=== PATIENT | male | born 1950 | race Caucasian/White ===

== ENCOUNTER 2018-01-14 01:34 | Inpatient (IN) | payer MEDICARE ==
--- NOTE | 2018-01-14 01:57 | C.PDOC ---
History Of Present Illness 67 y/o male presents to the ED complaining of worsening SOB over last 6 months. Also complains of dyspnea on exertion. Associated with paroxysmal nocturnal dyspnea, dry cough, and lower extremity edema. Patient notes symptoms have worsened over the last 2 days, and he is now unable to sleep due to dry hacking cough. Denies any nausea, vomiting, fever, or chills. On arrival patient is speaking in complete sentences. Over the last 6 weeks, patient states he is only able to sleep while sitting in his arm chair. Time Seen by Provider: 01/14/18 01:55 Chief Complaint (Nursing): Shortness Of Breath History Per: Patient History/Exam Limitations: no limitations Onset/Duration Of Symptoms: Days Current Symptoms Are (Timing): Still Present Initiating Event: Other Quality: Dull Exacerbating Factor(s): Laying Flat, Coughing Current Respiratory Medications: See Home Med List Severity: Moderate Pain Scale Rating Of: 5 Associated Symptoms: Ankle/Leg Swelling. denies: Fever, Chills, Chest Pain Recent travel outside of the [place]: No Additional History Per: Family Past Medical History Reviewed: Historical Data, Nursing Documentation, Vital Signs Vital Signs: Last Vital Signs Temp 98.9 F 01/14/18 01:55 Pulse 110 H 01/14/18 02:19 Resp 18 01/14/18 02:19 BP 150/90 01/14/18 02:19 Pulse Ox 95 01/14/18 02:59 - Medical History PMH: Diabetes, HTN Family History: States: Unknown Family Hx - Social History Hx Tobacco Use: No Hx Alcohol Use: Yes Hx Substance Use: No Review Of Systems Constitutional: Negative for: Fever, Chills Respiratory: Positive for: Cough, Shortness of Breath, SOB with Excertion, Other (PND) Gastrointestinal: Negative for: Nausea, Vomiting Musculoskeletal: Positive for: Other (lower extremity swelling) Physical Exam - Physical Exam Appears: Non-toxic, No Acute Distress Skin: Warm, Dry Head: Normacephalic Eye(s): bilateral: Normal Inspection Oral Mucosa: Moist Neck: Trachea Midline, Supple Chest: Symmetrical Cardiovascular: Rhythm Regular Respiratory: Decreased Breath Sounds, Rales (Diffuse rales at the bases), Rhonchi (right > left) Gastrointestinal/Abdominal: Soft, No Tenderness, No Distention Back: Normal Inspection, No CVA Tenderness Extremity: Normal ROM, Pedal Edema Extremity: Bilateral: Atraumatic, Normal ROM Pulses: Left Dorsalis Pedis: Normal, Right Dorsalis Pedis: Normal Neurological/Psych: Oriented x3, Normal Speech Gait: Steady ED Course And Treatment - Laboratory Results Result Diagrams: 01/14/18 02:21 01/14/18 02:21 ECG: Interpreted By Me, Viewed By Me ECG Rhythm: Sinus Rhythm (100), Nonspecific Changes (old iwmi) O2 Sat by Pulse Oximetry: 95 (RA) Pulse Ox Interpretation: Normal - Radiology CXR: Interpreted by Me, Viewed By Me Progress Note: Labs, EKG, CXR ordered. Disposition Discussed With : Patricia Zaragoza Comment: accepted the pt on his service and took over the care at 6:22AM Doctor Will See Patient In The: Hospital Counseled Patient/Family Regarding: Studies Performed, Diagnosis - Disposition Disposition: HOSPITALIZED Disposition Time: 01:57 Condition: FAIR Forms: [facility] (Swazi) - POA Present On Arrival: None - Clinical Impression Clinical Impression: Dyspnea, CHF (congestive heart failure), Pneumonia - Scribe Statement The provider has reviewed the documentation as recorded by the Scribe (Leticia Watts) Provider Attestation: All medical record entries made by the Scribe were at my direction and personally dictated by me. I have reviewed the chart and agree that the record accurately reflects my personal performance of the history, physical exam, medical decision making, and the department course for this patient. I have also personally directed, reviewed, and agree with the discharge instructions and disposition. Decision To Admit - Pt Status Changed To: Hospital Disposition Of: Inpatient - Admit Certification Admit to Inpatient:: After my assessment, the patient will require hospitalization for at least two midnights. This is because of the severity of symptoms shown, intensity of services needed, and/or the medical risk in this patient being treated as an outpatient. - InPatient: Physician Admission Certification: I certify that this patient requires 2 or more midnights of care for the following reason:: After my assessment, the patient will require hospitalization for at least two midnights. This is because of the severity of symptoms shown, intensity of services needed, and/or the medical risk in this patient being treated as an outpatient. - . Bed Request Type: Regular Patient Diagnosis: Dyspnea, CHF (congestive heart failure), Pneumonia
[2018-01-14 02:28] LABS: BASO # 0.2 K/uL (0.0-0.2); BASO % 2.1 % (0.0-2.0); EOS # 0.4 K/uL (0.0-0.7); EOS % 3.8 % (0.0-4.0); HEMOGLOBIN 13.3 g/dL (12.0-18.0); LYMPH # 3.4 K/uL (1.0-4.3); LYMPH % 34.9 % (20.0-40.0); MEAN CELL VOLUME 94.6 fL (80.0-94.0); MEAN CORPUSCULAR HEMOGLOBIN 32.5 pg (27.0-31.0); MEAN CORPUSCULAR HGB CONC 34.4 g/dL (33.0-37.0); MEAN PLATELET VOLUME 7.3 fL (7.2-11.7); MONO # 0.9 K/uL (0.0-0.8); MONO % 9.2 % (0.0-10.0); NEUT # 4.9 K/uL (1.8-7.0); RBC 4.08 Mil/uL (4.40-5.90); RED CELL DISTRIBUTION WIDTH 14.6 % (11.5-14.5); WHITE BLOOD COUNT 9.8 K/uL (4.8-10.8)
[2018-01-14 02:29] LABS: INR 1.3; PROTHROMBIN TIME 14.5 SECONDS (9.7-12.2)
[2018-01-14 02:36] LABS: ALB/GLOB RATIO 0.7 (1.0-2.1); ALBUMIN 3.3 g/dL (3.5-5.0); ALT/SGPT 35 U/L (21-72); AST/SGOT 60 U/L (17-59); BLOOD UREA NITROGEN 16 mg/dL (9-20); CALCIUM 8.2 mg/dl (8.6-10.4); GFR AFRICAN-AMERICAN > 60; GFR NON-AFRICAN AMERICAN > 60
[2018-01-14 02:50] LABS: VENOUS BLOOD GAS BASE EXCESS -1.1 mmol/L (0.0-2.0); VENOUS BLOOD GAS PCO2 34 mmHg (40-60); VENOUS BLOOD GAS PO2 53 mm/Hg (30-55); VENOUS BLOOD PH 7.43 (7.32-7.43)
[2018-01-14 03:30] LABS: URINE BILIRUBIN NEGATIVE (NEGATIVE); URINE BLOOD NEGATIVE (NEGATIVE); URINE CLARITY Clear (Clear); URINE COLOR Yellow (YELLOW); URINE GLUCOSE (UA) NORMAL (Normal); URINE LEUKOCYTE ESTERASE NEG Leu/uL (Negative); URINE PROTEIN NEGATIVE (NEGATIVE)
--- NOTE | 2018-01-14 05:06 | CT ---
EXAM: CT Chest Without Intravenous Contrast CLINICAL HISTORY: 67 years old, male; Pain; Chest pain; Additional info: Cough TECHNIQUE: Axial computed tomography images of the chest without intravenous contrast. All CT scans at this facility use one or more dose reduction techniques, viz.: automated exposure control; ma/kV adjustment per patient size (including targeted exams where dose is matched to indication; i.e. head); or iterative reconstruction technique. 627 images are submitted. Axial images are submitted in lung and mediastinal windows. Coronal and sagittal reformatted images were created and reviewed. COMPARISON: No relevant prior studies available. FINDINGS: Lungs: There are bilateral patchy peripheral parenchymal infiltrate and bilateral lower lobes and lingular dense parenchymal infiltration with bronchiectasis. Correlation with clinical data is recommended to evaluate for an acute process of edema or pneumonia. Pleural space: No complicating pleural effusions are noted. No pneumothorax. Heart: Small amount of fluid in the superior pericardial recess. Mediastinum: Small hiatal hernia. Bones/joints: Right-sided scoliosis. Degenerative changes. No acute fracture. No dislocation. Soft tissues: Left gynecomastia. Vasculature: The aorta demonstrates calcified plaque and is mildly ectatic but normal in caliber. No thoracic aortic aneurysm. Lymph nodes: Unremarkable. No enlarged lymph nodes. Liver: Enlarged nodular cirrhotic liver. Gallbladder and bile ducts: Gallbladder distention with multiple gallstones. Adrenals: Normal adrenal glands. Kidneys and ureters: Nonobstructive renal stones. Stomach and bowel: There is stool like appearance to the distal small bowel. This may represent slow transit. Diverticulosis. Nonspecific gastric thickening likely due to under distention. Correlation with clinical data is recommended if gastritis is suspected. Duodenal diverticulum. IMPRESSION: 1. There are bilateral patchy peripheral parenchymal infiltrate and bilateral lower lobes and lingular dense parenchymal infiltration with bronchiectasis. Correlation with clinical data is recommended to evaluate for an acute process of edema or pneumonia. There is bilateral bronchiectasis and evidence of chronic lung disease/pulmonary fibrosis. Correlation with patient's pulmonary history is recommended. 2. Enlarged cirrhotic liver. Gallstones. Correlation with internal medicine evaluation and further workup or followup as recommended by patient's clinical data.
[2018-01-14] MEDS ORDERED: Piperacillin/Tazobact 3.375 gm 100 ML IVPB STA (05:19)
[2018-01-14] MEDS: Azithromycin 500 MG in Sodium Chloride 0.9% 250 ML IVPB SCH (07:48)
[2018-01-14] MEDS: (Novolin R) Insulin Human Regular 100 units/ml vial SC SCH ×4 (07:54→21:38)
--- NOTE | 2018-01-14 08:42 | RAD ---
PROCEDURE: CHEST RADIOGRAPH, 1 VIEW HISTORY: SOB COMPARISON: None available. FINDINGS: LUNGS: The lungs are well inflated. There is moderate pulmonary venous congestion. There is also confluent airspace disease in the lower lobes. PLEURA: No pneumothorax or pleural fluid seen. CARDIOVASCULAR: Normal. OSSEOUS STRUCTURES: No significant abnormalities. VISUALIZED UPPER ABDOMEN: Normal. OTHER FINDINGS: None. IMPRESSION: Confluent airspace disease in the lower lobes could represent subsegmental atelectasis however superimposed pneumonia cannot be excluded. Follow-up is advised. Moderate pulmonary venous congestion.
--- NOTE | 2018-01-14 10:16 | CP.PCM.HP ---
History of Present Illness - History of Present Illness History of Present Illness: Chief complaint: Cough History present illness: 67-year-old male with history of diabetes, hypertension/cholesterol. Patient was brought to the emergency room by the family members because of the worsening shortness of breath, and increasing cough. Patient supposed to be seeing me in my office today, but last night he started having worsening cough. Patient according to the family members was having at least a 2-3 days of worsening shortness of breath, and also increasing cough. For last few weeks his having increasing dyspnea especially at nighttime, also increasingly worsening SOB on exertion. He was not able to lie flat. Using pillows. Patient stated that at least a 6 months that he is having progressively worsening shortness of breath. Before used to walk long distances, now after walking 4 blocks he started feeling increasing dyspnea. He is not able to climb stairs. Lying down causes increasing coughing episodes. He did not have any fever or night sweats or chills. He claims that in the past at least 6-7 years ago he was treated for tuberculosis. He also had some prostate problem in the past. He had a treatment for tuberculosis at least 6 months at [facility] He did not have any fever. No chills. He denied any vomiting. He did not have any chest pain. In the emergency room patient was in severe respiratory distress. Placed on oxygen. Past medical history: Hypertension diabetes high cholesterol on medication. Patient did not see any medical doctor recently. Allergies: No known drug allergy Personal history: He does not smoke. He drinks at least once a month. Patient is living by himself here with family members. Family history significant for lung cancer in the family. Also diabetes and hypertension Review of systems: Currently patient is having increasing cough and wheezing and shortness of breath. Mostly dry. No chest pain. Increasing leg swelling Unable to sleep. Dyspnea noted On examination: Vital signs noted. Chest bilateral diffuse rhonchi and wheezing noted. Regular heart sound Abdominal distention present. Pedal edema noted Labs reviewed Nonspecific CAT scan of the chest and showing evidence of interstitial changes, likely associated interstitial fibrosis Also possibly has pneumonia Assessment and recommendation: 67-year-old male with history of hypertension diabetes hypercholesterolemia now admitted with worsening orthopnea, shortness of breath, leg swelling. CT of the chest showing evidence of chronic liver disease cirrhosis of the liver. Will get the further workup. Diuretics may be needed. DVT study. Sonogram of the abdomen. GI evaluation. Antibiotic. Antibiotic for presumptive community-acquired pneumonia. Spoke to the patient's family member Will follow the patient Present on Admission - Present on Admission Any Indicators Present on Admission: No History of DVT/PE: No History of Uncontrolled Diabetes: No Urinary Catheter: No Decubitus Ulcer Present: No Past Patient History - Past Social History Smoking Status: Never Smoked - CARDIAC Hx Hypertension: Yes - ENDOCRINE/METABOLIC Hx Diabetes Mellitus Type 1: Yes - PSYCHIATRIC Hx Substance Use: No Meds Allergies/Adverse Reactions: Allergies Allergy/AdvReac Type Severity Reaction Status Date / Time No Known Allergies Allergy Verified 01/14/18 01:58 Results - Vital Signs Recent Vital Signs: Last Vital Signs Temp 98.1 F 01/14/18 08:41 Pulse 92 H 01/14/18 08:41 Resp 20 01/14/18 08:41 BP 125/76 01/14/18 08:41 Pulse Ox 96 01/14/18 08:41 - Labs Result Diagrams: 01/15/18 07:10 01/15/18 07:10 Labs: Laboratory Results - last 24 hr 01/14/18 01/14/18 01/14/18 02:21 02:21 02:21 WBC 9.8 RBC 4.08 L Hgb 13.3 Hct 38.6 MCV 94.6 H MCH 32.5 H MCHC 34.4 RDW 14.6 H Plt Count 167 MPV 7.3 Neut % (Auto) 50.0 Lymph % (Auto) 34.9 Trigg % (Auto) 9.2 Eos % (Auto) 3.8 Baso % (Auto) 2.1 H Neut # (Auto) 4.9 Lymph # (Auto) 3.4 Trigg # (Auto) 0.9 H Eos # (Auto) 0.4 Baso # (Auto) 0.2 PT 14.5 H INR 1.3 APTT 36 H pO2 VBG pH VBG pCO2 VBG HCO3 VBG Total CO2 VBG O2 Sat (Calc) VBG Base Excess VBG Potassium Glucose Lactate Sodium 139 Potassium 4.2 Chloride 104 Carbon Dioxide 24 Anion Gap 14 BUN 16 Creatinine 0.9 Est GFR ( Amer) > 60 Est GFR (Non-Af Amer) > 60 POC Glucose (mg/dL) Random Glucose 107 Calcium 8.2 L Total Bilirubin 1.5 H AST 60 H ALT 35 Alkaline Phosphatase 168 H Troponin I < 0.0120 NT-Pro-B Natriuret Pep 37.0 Total Protein 8.2 Albumin 3.3 L Globulin 5.0 H Albumin/Globulin Ratio 0.7 L Venous Blood Potassium Urine Color Urine Clarity Urine pH Ur Specific [place] Urine Protein Urine Glucose (UA) Urine Ketones Urine Blood Urine Nitrate Urine Bilirubin Urine Urobilinogen Ur Leukocyte Esterase Urine WBC (Auto) B-Hydroxybutyrate 0.19 01/14/18 01/14/18 01/14/18 02:23 02:32 03:24 WBC RBC Hgb Hct MCV MCH MCHC RDW Plt Count MPV Neut % (Auto) Lymph % (Auto) Trigg % (Auto) Eos % (Auto) Baso % (Auto) Neut # (Auto) Lymph # (Auto) Trigg # (Auto) Eos # (Auto) Baso # (Auto) PT INR APTT pO2 53 VBG pH 7.43 VBG pCO2 34 L VBG HCO3 23.8 VBG Total CO2 23.6 VBG O2 Sat (Calc) 91.7 H VBG Base Excess -1.1 L VBG Potassium 3.7 Glucose 97 Lactate 1.3 Sodium 136.0 Potassium Chloride 104.0 Carbon Dioxide Anion Gap BUN Creatinine Est GFR ( Amer) Est GFR (Non-Af Amer) POC Glucose (mg/dL) 89 Random Glucose Calcium Total Bilirubin AST ALT Alkaline Phosphatase Troponin I NT-Pro-B Natriuret Pep Total Protein Albumin Globulin Albumin/Globulin Ratio Venous Blood Potassium 3.7 Urine Color Yellow Urine Clarity Clear Urine pH 6.0 Ur Specific [place] 1.012 Urine Protein Negative Urine Glucose (UA) Normal Urine Ketones Negative Urine Blood Negative Urine Nitrate Negative Urine Bilirubin Negative Urine Urobilinogen 2.0 Ur Leukocyte Esterase Neg Urine WBC (Auto) < 1 B-Hydroxybutyrate 01/14/18 07:51 WBC RBC Hgb Hct MCV MCH MCHC RDW Plt Count MPV Neut % (Auto) Lymph % (Auto) Trigg % (Auto) Eos % (Auto) Baso % (Auto) Neut # (Auto) Lymph # (Auto) Trigg # (Auto) Eos # (Auto) Baso # (Auto) PT INR APTT pO2 VBG pH VBG pCO2 VBG HCO3 VBG Total CO2 VBG O2 Sat (Calc) VBG Base Excess VBG Potassium Glucose Lactate Sodium Potassium Chloride Carbon Dioxide Anion Gap BUN Creatinine Est GFR ( Amer) Est GFR (Non-Af Amer) POC Glucose (mg/dL) 77 Random Glucose Calcium Total Bilirubin AST ALT Alkaline Phosphatase Troponin I NT-Pro-B Natriuret Pep Total Protein Albumin Globulin Albumin/Globulin Ratio Venous Blood Potassium Urine Color Urine Clarity Urine pH Ur Specific [place] Urine Protein Urine Glucose (UA) Urine Ketones Urine Blood Urine Nitrate Urine Bilirubin Urine Urobilinogen Ur Leukocyte Esterase Urine WBC (Auto) B-Hydroxybutyrate
[2018-01-14] MEDS: Albuterol-Ipratrop 3 mg / 0.5 (3 ml) UD INH SCH ×3 (10:33→19:30)
[2018-01-14] MEDS: MethylPREDNISolone 40 mg Vial IVP SCH ×2 (10:55→21:33)
--- NOTE | 2018-01-14 11:47 | US ---
HISTORY: liver disease COMPARISON: None. TECHNIQUE: Grayscale imaging was performed. FINDINGS: LIVER: Measures 16.7 cm. There is diffuse increased echogenicity of the liver parenchyma. No mass. No intrahepatic bile duct dilatation. GALLBLADDER: There are no gallstones, wall thickening or pericholecystic fluid. The sonographic De Jesus's sign is negative. COMMON BILE DUCT: Measures 2.8 mm. No stones. No dilatation. PANCREAS: Unremarkable as visualized. No mass. No ductal dilatation. RIGHT KIDNEY: Measures 13.4cm. Normal echogenicity. No calculus, mass, or hydronephrosis. LEFT KIDNEY: Measures 13.7cm. Normal echogenicity. No calculus, mass, or hydronephrosis. SPLEEN: Normal in size and contour. No mass. AORTA: No aneurysmal dilatation. IVC: Unremarkable. OTHER FINDINGS: None. IMPRESSION: Mild hepatomegaly. Diffuse increased echogenicity in the liver may reflect hepatic steatosis however parenchymal infectious/ inflammatory etiologies cannot be entirely excluded. Clinical and laboratory correlation is advised. No cholelithiasis or biliary dilatation.
[2018-01-14 13:34] LABS: HEPATITIS B SURFACE AG Negative (NEGATIVE)
[2018-01-14 13:40] LABS: HEPATITIS A IGM NEGATIVE (NEGATIVE); HEPATITIS B CORE AB NEGATIVE (NEGATIVE)
[2018-01-14 15:21] LABS: HEPATITIS C ANTIBODY REACTIVE (NEGATIVE)
[2018-01-15] MEDS: Albuterol-Ipratrop 3 mg / 0.5 (3 ml) UD INH SCH ×4 (01:55→19:34)
[2018-01-15] MEDS: Azithromycin 500 MG in Sodium Chloride 0.9% 250 ML IVPB SCH (06:07)
[2018-01-15 07:17] LABS: BASO % 0.2 % (0.0-2.0); HEMOGLOBIN 14.2 g/dL (12.0-18.0); LYMPH # 1.8 K/uL (1.0-4.3); LYMPH % 29.3 % (20.0-40.0); MEAN CELL VOLUME 94.5 fL (80.0-94.0); MEAN CORPUSCULAR HEMOGLOBIN 33.4 pg (27.0-31.0); MEAN CORPUSCULAR HGB CONC 35.3 g/dL (33.0-37.0); MEAN PLATELET VOLUME 7.2 fL (7.2-11.7); MONO # 0.3 K/uL (0.0-0.8); MONO % 4.1 % (0.0-10.0); NEUT % 66.4 % (50.0-75.0); NRBC % 0.1 % (0.0-2.0); RBC 4.27 Mil/uL (4.40-5.90); RED CELL DISTRIBUTION WIDTH 14.6 % (11.5-14.5); WHITE BLOOD COUNT 6.1 K/uL (4.8-10.8)
[2018-01-15 07:31] LABS: ALBUMIN 3.3 g/dL (3.5-5.0); BLOOD UREA NITROGEN 12 mg/dL (9-20); CALCIUM 8.3 mg/dl (8.6-10.4); GFR AFRICAN-AMERICAN > 60; GFR NON-AFRICAN AMERICAN > 60
[2018-01-15 07:32] LABS: ALB/GLOB RATIO 0.7 (1.0-2.1); ALT/SGPT 26 U/L (21-72); AST/SGOT 58 U/L (17-59)
[2018-01-15 08:01] LABS: CERULOPLASMIN 30 mg/dL (18-36)
[2018-01-15] MEDS ORDERED: Iohexol 240 (50 ml) PO ONE (09:00)
[2018-01-15] MEDS: (Novolin R) Insulin Human Regular 100 units/ml vial SC SCH ×4 (09:08→21:23)
[2018-01-15] MEDS: MethylPREDNISolone 40 mg Vial IVP SCH ×2 (09:12→21:23)
--- NOTE | 2018-01-15 14:04 | CP.PCM.CON ---
<Felice Watts - Last Filed: 01/15/18 14:25> History of Present Illness - History of Present Illness History of Present Illness: PGY4 Initial GI Consult Reason for consult: cirrhosis Brent Garza is a 67M w/ hx of HTN, HL, DM, TB s/p tx who presented to the ED with complaints of SOB. Pt states that the onset was 2-3 days of worsening shortness of breath, and also increasing cough. For last few weeks his having increasing dyspnea especially at nighttime, also increasingly worsening SOB on exertion and was not able to lie flat. Pt was found to have PNA. A CT of the Chest was performed and revealed a cirrhotic changes. Pt denies any abd pain, previous hx of juandice, liver disease, IV drug use, blood transfusion, excessive alcohol use. Pt denies any previous hematemsis or coffee-ground emesis. Denies any BRBPR or melena. Denies any herbal medication use. Initial BW revealed Hep C antibody. Past medical history: PMHx: Hypertension diabetes high cholesterol on medication. PSHx: Denies Social Hx:He does not smoke, He drinks at least once a month. Family history significant for lung cancer in the family. Endo Hx: none ROS: 12 point ROS conducted, neg other than above Past Patient History - Past Medical History & Family History Past Medical History?: Yes - Past Social History Smoking Status: Never Smoked - CARDIAC Hx Hypertension: Yes - PULMONARY Hx Respiratory Disorders: Yes Hx Pneumonia: Yes - NEUROLOGICAL Hx Neurological Disorder: No - HEENT Hx HEENT Problems: No - RENAL Hx Chronic Kidney Disease: No - ENDOCRINE/METABOLIC Hx Diabetes Mellitus Type 1: Yes - HEMATOLOGICAL/ONCOLOGICAL Hx Cirrhosis: Yes - INTEGUMENTARY Hx Dermatological Problems: No - MUSCULOSKELETAL/RHEUMATOLOGICAL Hx Falls: Yes - GASTROINTESTINAL Hx Gastrointestinal Disorders: No - GENITOURINARY/GYNECOLOGICAL Hx Genitourinary Disorders: No - PSYCHIATRIC Hx Substance Use: No - SURGICAL HISTORY Hx Surgeries: No - ANESTHESIA Hx Anesthesia: No Meds Allergies/Adverse Reactions: Allergies Allergy/AdvReac Type Severity Reaction Status Date / Time No Known Allergies Allergy Verified 01/14/18 01:58 - Medications Medications: Current Medications Albuterol/Ipratropium (Duoneb 3 Mg/0.5 Mg (3 Ml) Ud) 3 ml INH RQ6 [facility] Last Admin: 01/15/18 13:12 Dose: 3 ml Furosemide (Lasix) 20 mg IVP DAILY [facility] Last Admin: 01/15/18 09:12 Dose: 20 mg Heparin Sodium (Porcine) (Heparin) 5,000 units SC Q8 [facility] Last Admin: 01/15/18 13:29 Dose: 5,000 units Ceftriaxone Sodium 1 gm/ (Sodium Chloride) 100 mls @ 100 mls/hr IVPB DAILY [facility] PRN Reason: Protocol Last Admin: 01/15/18 10:30 Dose: 100 mls/hr Azithromycin 500 mg/ Sodium (Chloride) 250 mls @ 250 mls/hr IVPB Q24H [facility] PRN Reason: Protocol Last Admin: 01/15/18 06:07 Dose: 250 mls/hr Insulin Human Regular (Novolin R) 0 unit SC ACHS [facility] PRN Reason: Protocol Last Admin: 01/15/18 11:55 Dose: 8 unit Methylprednisolone (Solu-Medrol) 40 mg IVP Q12 [facility] Stop: 01/16/18 10:01 Last Admin: 01/15/18 09:12 Dose: 40 mg Pneumococcal Polyvalent Vaccine (Pneumovax 23 Vaccine) 0.5 ml IM .ONCE ONE Stop: 01/17/18 10:01 Physical Exam - Constitutional Appears: Well, No Acute Distress - Head Exam Head Exam: ATRAUMATIC, NORMOCEPHALIC - Eye Exam Eye Exam: Normal appearance - ENT Exam ENT Exam: Mucous Membranes Moist, Normal Exam - Neck Exam Neck exam: Positive for: Normal Inspection - Respiratory Exam Respiratory Exam: Clear to Auscultation Bilateral, Rhonchi, NORMAL BREATHING PATTERN. absent: Prolonged Expiratory Phase, Wheezes, Respiratory Distress - Cardiovascular Exam Cardiovascular Exam: REGULAR RHYTHM, +S1, +S2 - GI/Abdominal Exam GI & Abdominal Exam: Normal Bowel Sounds, Soft. absent: Diminished Bowel Sounds , Distended, Firm, Guarding, Organomegaly, Rebound, Rigid - Extremities Exam Extremities exam: Negative for: joint swelling, pedal edema - Neurological Exam Neurological exam: Alert, Oriented x3 - Psychiatric Exam Psychiatric exam: Normal Affect, Normal Mood - Skin Skin Exam: Dry, Intact, Normal Color, Warm Results - Vital Signs Recent Vital Signs: Last Vital Signs Temp 98.5 F 01/15/18 08:00 Pulse 110 H 01/15/18 08:00 Resp 20 01/15/18 08:00 BP 151/85 H 01/15/18 09:12 Pulse Ox 96 01/15/18 08:00 - Labs Result Diagrams: 01/15/18 07:10 01/15/18 07:10 Labs: Laboratory Results - last 24 hr 01/14/18 01/14/18 01/14/18 12:39 12:39 12:39 WBC RBC Hgb Hct MCV MCH MCHC RDW Plt Count MPV Neut % (Auto) Lymph % (Auto) Keith % (Auto) Eos % (Auto) Baso % (Auto) Neut # (Auto) Lymph # (Auto) Keith # (Auto) Eos # (Auto) Baso # (Auto) Sodium Potassium Chloride Carbon Dioxide Anion Gap BUN Creatinine Est GFR ( Amer) Est GFR (Non-Af Amer) POC Glucose (mg/dL) Random Glucose Calcium Phosphorus Magnesium Total Bilirubin AST ALT Alkaline Phosphatase Total Protein Albumin Globulin Albumin/Globulin Ratio Qdgyn-4-Uyieoelzcnl 154 Ceruloplasmin IgG Hep Bs Antibody Positive Hepatitis C Antibody Reactive 01/14/18 01/14/18 01/14/18 13:48 13:48 16:26 WBC RBC Hgb Hct MCV MCH MCHC RDW Plt Count MPV Neut % (Auto) Lymph % (Auto) Keith % (Auto) Eos % (Auto) Baso % (Auto) Neut # (Auto) Lymph # (Auto) Keith # (Auto) Eos # (Auto) Baso # (Auto) Sodium Potassium Chloride Carbon Dioxide Anion Gap BUN Creatinine Est GFR ( Amer) Est GFR (Non-Af Amer) POC Glucose (mg/dL) 319 H Random Glucose Calcium Phosphorus Magnesium Total Bilirubin AST ALT Alkaline Phosphatase Total Protein Albumin Globulin Albumin/Globulin Ratio Epuwv-6-Khazypuceqg Ceruloplasmin 30 IgG 2619.0 H Hep Bs Antibody Hepatitis C Antibody 01/14/18 01/15/18 01/15/18 21:34 02:17 07:10 WBC 6.1 RBC 4.27 L Hgb 14.2 Hct 40.3 MCV 94.5 H MCH 33.4 H MCHC 35.3 RDW 14.6 H Plt Count 163 MPV 7.2 Neut % (Auto) 66.4 Lymph % (Auto) 29.3 Keith % (Auto) 4.1 Eos % (Auto) 0.0 Baso % (Auto) 0.2 Neut # (Auto) 4.0 Lymph # (Auto) 1.8 Keith # (Auto) 0.3 Eos # (Auto) 0.0 Baso # (Auto) 0.0 Sodium Potassium Chloride Carbon Dioxide Anion Gap BUN Creatinine Est GFR ( Amer) Est GFR (Non-Af Amer) POC Glucose (mg/dL) 370 H 220 H Random Glucose Calcium Phosphorus Magnesium Total Bilirubin AST ALT Alkaline Phosphatase Total Protein Albumin Globulin Albumin/Globulin Ratio Ekkie-2-Yetrtultbdn Ceruloplasmin IgG Hep Bs Antibody Hepatitis C Antibody 01/15/18 01/15/18 01/15/18 07:10 07:40 11:02 WBC RBC Hgb Hct MCV MCH MCHC RDW Plt Count MPV Neut % (Auto) Lymph % (Auto) Keith % (Auto) Eos % (Auto) Baso % (Auto) Neut # (Auto) Lymph # (Auto) Keith # (Auto) Eos # (Auto) Baso # (Auto) Sodium 139 Potassium 4.3 Chloride 103 Carbon Dioxide 26 Anion Gap 15 BUN 12 Creatinine 0.7 L Est GFR ( Amer) > 60 Est GFR (Non-Af Amer) > 60 POC Glucose (mg/dL) 231 H 354 H Random Glucose 238 H Calcium 8.3 L Phosphorus 4.2 Magnesium 1.8 Total Bilirubin 0.7 AST 58 ALT 26 Alkaline Phosphatase 171 H Total Protein 8.3 Albumin 3.3 L Globulin 5.0 H Albumin/Globulin Ratio 0.7 L Qxuly-9-Rcfajuxyhce Ceruloplasmin IgG Hep Bs Antibody Hepatitis C Antibody Assessment & Plan - Assessment and Plan (Free Text) Assessment: Brent Garza is a 67M w. hx of HTN, HL, DM who presented to the ED with SOB. CT Chest revealed cirrhotic changes Cirrhotic Liver changes on CT Chronic Hep C SOB PNA Plan: -recommend Triple Phase CT of the Liver -Hep Serology was Hep C antibody + -hep c viral load, genotype, fibrosure -r/o autoimmune -will have additional recommendations based on LIver CT -will need to follow-up as an outpt w/ Dr. Bell -continue diet as tolerated -will need EGD and colonoscopy as oupt -MELD:15 D/W Dr. Bell <Aniya Bell - Last Filed: 01/15/18 19:54> Meds - Medications Medications: Current Medications Albuterol/Ipratropium (Duoneb 3 Mg/0.5 Mg (3 Ml) Ud) 3 ml INH RQ6 [facility] Last Admin: 01/15/18 19:34 Dose: 3 ml Furosemide (Lasix) 20 mg IVP DAILY [facility] Last Admin: 01/15/18 09:12 Dose: 20 mg Heparin Sodium (Porcine) (Heparin) 5,000 units SC Q8 [facility] Last Admin: 01/15/18 13:29 Dose: 5,000 units Ceftriaxone Sodium 1 gm/ (Sodium Chloride) 100 mls @ 100 mls/hr IVPB DAILY [facility] PRN Reason: Protocol Last Admin: 01/15/18 10:30 Dose: 100 mls/hr Azithromycin 500 mg/ Sodium (Chloride) 250 mls @ 250 mls/hr IVPB Q24H [facility] PRN Reason: Protocol Last Admin: 01/15/18 06:07 Dose: 250 mls/hr Insulin Human Regular (Novolin R) 0 unit SC ACHS [facility] PRN Reason: Protocol Last Admin: 01/15/18 16:30 Dose: 8 unit Methylprednisolone (Solu-Medrol) 40 mg IVP Q12 [facility] Stop: 01/16/18 10:01 Last Admin: 01/15/18 09:12 Dose: 40 mg Pneumococcal Polyvalent Vaccine (Pneumovax 23 Vaccine) 0.5 ml IM .ONCE ONE Stop: 01/17/18 10:01 Results - Vital Signs Recent Vital Signs: Last Vital Signs Temp 97.9 F 01/15/18 15:00 Pulse 112 H 01/15/18 15:00 Resp 20 01/15/18 15:00 BP 119/69 01/15/18 15:00 Pulse Ox 95 01/15/18 15:00 - Labs Result Diagrams: 01/15/18 07:10 01/15/18 07:10 Labs: Laboratory Results - last 24 hr 01/14/18 01/14/18 01/14/18 12:39 13:48 21:34 WBC RBC Hgb Hct MCV MCH MCHC RDW Plt Count MPV Neut % (Auto) Lymph % (Auto) Keith % (Auto) Eos % (Auto) Baso % (Auto) Neut # (Auto) Lymph # (Auto) Keith # (Auto) Eos # (Auto) Baso # (Auto) Sodium Potassium Chloride Carbon Dioxide Anion Gap BUN Creatinine Est GFR ( Amer) Est GFR (Non-Af Amer) POC Glucose (mg/dL) 370 H Random Glucose Calcium Phosphorus Magnesium Total Bilirubin AST ALT Alkaline Phosphatase Total Protein Albumin Globulin Albumin/Globulin Ratio Dujjr-9-Qxykfexhbhm 154 Ceruloplasmin 30 01/15/18 01/15/18 01/15/18 02:17 07:10 07:10 WBC 6.1 RBC 4.27 L Hgb 14.2 Hct 40.3 MCV 94.5 H MCH 33.4 H MCHC 35.3 RDW 14.6 H Plt Count 163 MPV 7.2 Neut % (Auto) 66.4 Lymph % (Auto) 29.3 Keith % (Auto) 4.1 Eos % (Auto) 0.0 Baso % (Auto) 0.2 Neut # (Auto) 4.0 Lymph # (Auto) 1.8 Keith # (Auto) 0.3 Eos # (Auto) 0.0 Baso # (Auto) 0.0 Sodium 139 Potassium 4.3 Chloride 103 Carbon Dioxide 26 Anion Gap 15 BUN 12 Creatinine 0.7 L Est GFR ( Amer) > 60 Est GFR (Non-Af Amer) > 60 POC Glucose (mg/dL) 220 H Random Glucose 238 H Calcium 8.3 L Phosphorus 4.2 Magnesium 1.8 Total Bilirubin 0.7 AST 58 ALT 26 Alkaline Phosphatase 171 H Total Protein 8.3 Albumin 3.3 L Globulin 5.0 H Albumin/Globulin Ratio 0.7 L Euqds-9-Jctkqxyzgct Ceruloplasmin 01/15/18 01/15/18 01/15/18 07:40 11:02 16:16 WBC RBC Hgb Hct MCV MCH MCHC RDW Plt Count MPV Neut % (Auto) Lymph % (Auto) Keith % (Auto) Eos % (Auto) Baso % (Auto) Neut # (Auto) Lymph # (Auto) Keith # (Auto) Eos # (Auto) Baso # (Auto) Sodium Potassium Chloride Carbon Dioxide Anion Gap BUN Creatinine Est GFR ( Amer) Est GFR (Non-Af Amer) POC Glucose (mg/dL) 231 H 354 H 404 H* Random Glucose Calcium Phosphorus Magnesium Total Bilirubin AST ALT Alkaline Phosphatase Total Protein Albumin Globulin Albumin/Globulin Ratio Esccu-3-Lrprgwpqxfe Ceruloplasmin 01/15/18 16:18 WBC RBC Hgb Hct MCV MCH MCHC RDW Plt Count MPV Neut % (Auto) Lymph % (Auto) Keith % (Auto) Eos % (Auto) Baso % (Auto) Neut # (Auto) Lymph # (Auto) Keith # (Auto) Eos # (Auto) Baso # (Auto) Sodium Potassium Chloride Carbon Dioxide Anion Gap BUN Creatinine Est GFR ( Amer) Est GFR (Non-Af Amer) POC Glucose (mg/dL) 379 H Random Glucose Calcium Phosphorus Magnesium Total Bilirubin AST ALT Alkaline Phosphatase Total Protein Albumin Globulin Albumin/Globulin Ratio Ncoqk-7-Jsnmnaprouy Ceruloplasmin Attending/Attestation - Attestation I have personally seen and examined this patient.: Yes I have fully participated in the care of the patient.: Yes I have reviewed all pertinent clinical information: Yes Notes (Text): 01/15/18 19:53 67 yr old M with history of of HTN, HL, DM who presented to the ED with SOB. CT Chest revealed cirrhotic changes in liver with HCV ab positive. Either past or actove infection. Will send viral load and get triple phase Ct liver for further work up
[2018-01-15] MEDS ORDERED: Iodixanol 320 MG/ML 100 ML BOTTLE IV ONE (14:34)
--- NOTE | 2018-01-15 16:45 | CT ---
EXAM: CT Abdomen Without and With Intravenous Contrast; CT abdomen with intravenous contrast EXAM DATE/TIME: Exam ordered 01/15/2018 9:47 AM CLINICAL HISTORY: 67 years old, male; Condition or disease; Liver condition and other: Cirrhosis; Alcoholic TECHNIQUE: Axial computed tomography images of the abdomen without and with intravenous contrast. Axial computed tomographic images of the abdomen and and pelvis with contrast. All CT scans at this facility use one or more dose reduction techniques, viz.: automated exposure control; ma/kV adjustment per patient size (including targeted exams where dose is matched to indication; i.e. head); or iterative reconstruction technique. Coronal and sagittal reformatted images were created and reviewed. CONTRAST: 100 mL of visipaque 320 administered intravenously. COMPARISON: No relevant prior studies available. FINDINGS: Lung bases: Diffuse interstitial fibrosis at both lung bases. There is traction bronchiectasis noted at both lung bases. Groundglass opacities are noted bilaterally. Heart: There is coronary artery calcification. Liver: There is mild nodularity of the liver contour with relative enlargement of the left lobe of the liver. Gallbladder and bile ducts: Gallstones are seen in the gallbladder. No ductal dilation. Pancreas: Unremarkable. No mass. No ductal dilation. Spleen: Unremarkable. No splenomegaly. Adrenals: Unremarkable. No mass. Kidneys and ureters: There are at least 4 calcifications in the right kidney. Largest is in the midportion of the kidney measuring 4.5 mm. There is a 3.2 mm calcification in midportion of the kidney and 2 less than 2 mm calcifications in the upper pole of the right kidney. . On the left, there are at least 7 calcifications. The largest is in the midportion of the kidney measuring 3 mm. There are 2 smaller calcifications in the upper pole, 2 in the midportion the kidney each measuring approximately 2 mm and 2 in the lower pole.There is 3 subcentimeter cysts in the lower pole of the left kidney. Stomach and bowel: There are scattered colonic diverticula.. No obstruction. No mucosal thickening. Appendix: Normal Intraperitoneal space: Unremarkable. No free air. No significant fluid collection. Bones/joints: Mild degenerative changes noted of the thoracic and lumbar spine.. Soft tissues: Unremarkable. Vasculature: Small varices are seen in the gastrohepatic ligament.No abdominal aortic aneurysm. Lymph nodes: Small lymph nodes (less than 1 cm in short axis) are noted within the gastrohepatic ligament Pelvis: Bladder: Unremarkable Reproductive: Prostate measures 3.2 x 4.4 x 4.2 cm. IMPRESSION: 1. Bilateral nonobstructing renal calculi. 2. Liver demonstrates features of cirrhosis 3. Gallstones 4. Scattered colonic diverticula. No diverticulitis. 5. Left renal cysts. 6. Bibasilar interstitial fibrosis with traction bronchiectasis. Groundglass opacities may reflect a superimposed acute pneumonitis
--- NOTE | 2018-01-15 18:53 | CP.PCM.PN ---
Subjective - Date & Time of Evaluation Date of Evaluation: 01/15/18 Time of Evaluation: 18:53 - Subjective Subjective: Patient today feeling much better. The leg swelling is improving. Also feeling less shortness of breath. Eating better. The blood sugar is better Patient is being seen by gastric enterologist in On examination: Vital signs stable. Chest good air entry bilaterally regular heart sound nontender abdomen edema 1+ bilaterally noted PATTERN DUPLICATOR alert awake oriented 3 no functional neurological deficit Patient's labs reviewed Hepatitis C antibody positive Patient also underwent a CT of the abdomen and pelvis triphasic study showing evidence of cirrhotic liver Assessment and recommendation: 67-year-old male with a history of diabetes and hypertension now admitted with the worsening shortness of breath. 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 Also patient has chronic liver disease with hepatitis C and also cirrhotic changes in the liver. Appreciated GI evaluation. Patient is a candidate for hep C treatment. Will continue the IV diuretics. Spoke to the patient family in detail. Will follow the patient currently on IV antibiotic for possible pneumonia. Other acute exacerbation of lung fibrosis Objective - Vital Signs/Intake and Output Vital Signs (last 24 hours): Temp Pulse Resp BP Pulse Ox 97.9 F 112 H 20 119/69 95 01/15/18 15:00 01/15/18 15:00 01/15/18 15:00 01/15/18 15:00 01/15/18 15:00 Intake and Output: 01/15/18 01/15/18 06:59 18:59 Intake Total 780 100 Balance 780 100 - Medications Medications: Current Medications Albuterol/Ipratropium (Duoneb 3 Mg/0.5 Mg (3 Ml) Ud) 3 ml INH RQ6 [facility] Last Admin: 01/15/18 13:12 Dose: 3 ml Furosemide (Lasix) 20 mg IVP DAILY [facility] Last Admin: 01/15/18 09:12 Dose: 20 mg Heparin Sodium (Porcine) (Heparin) 5,000 units SC Q8 [facility] Last Admin: 01/15/18 13:29 Dose: 5,000 units Ceftriaxone Sodium 1 gm/ (Sodium Chloride) 100 mls @ 100 mls/hr IVPB DAILY [facility] PRN Reason: Protocol Last Admin: 01/15/18 10:30 Dose: 100 mls/hr Azithromycin 500 mg/ Sodium (Chloride) 250 mls @ 250 mls/hr IVPB Q24H [facility] PRN Reason: Protocol Last Admin: 01/15/18 06:07 Dose: 250 mls/hr Insulin Human Regular (Novolin R) 0 unit SC ACHS [facility] PRN Reason: Protocol Last Admin: 01/15/18 16:30 Dose: 8 unit Methylprednisolone (Solu-Medrol) 40 mg IVP Q12 [facility] Stop: 01/16/18 10:01 Last Admin: 01/15/18 09:12 Dose: 40 mg Pneumococcal Polyvalent Vaccine (Pneumovax 23 Vaccine) 0.5 ml IM .ONCE ONE Stop: 01/17/18 10:01 - Labs Labs: 01/15/18 07:10 01/15/18 07:10 PT 14.5 SECONDS (9.7-12.2) H 01/14/18 02:21 INR 1.3 01/14/18 02:21 APTT 36 SECONDS (21-34) H 01/14/18 02:21
[2018-01-16] MEDS: Albuterol-Ipratrop 3 mg / 0.5 (3 ml) UD INH SCH ×4 (01:56→20:50)
[2018-01-16] MEDS: Azithromycin 500 MG in Sodium Chloride 0.9% 250 ML IVPB SCH (06:06)
--- NOTE | 2018-01-16 07:39 | CP.PCM.PN ---
Subjective - Date & Time of Evaluation Date of Evaluation: 01/16/18 Time of Evaluation: 07:39 - Subjective Subjective: Patient today feeling much better. The leg swelling is improving. Also feeling less shortness of breath. Eating better. The blood sugar is better Patient is being seen by gastric enterologist in On examination: Vital signs stable. Chest good air entry bilaterally regular heart sound nontender abdomen edema 1+ bilaterally noted POULTRY PICKER alert awake oriented 3 no functional neurological deficit Patient's labs reviewed Hepatitis C antibody positive Patient also underwent a CT of the abdomen and pelvis triphasic study showing evidence of cirrhotic liver Assessment and recommendation: 67-year-old male with a history of diabetes and hypertension now admitted with the worsening shortness of breath. 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 Also patient has chronic liver disease with hepatitis C and also cirrhotic changes in the liver. Appreciated GI evaluation. Patient is a candidate for hep C treatment. Will continue the IV diuretics. Spoke to the patient family in detail. Will follow the patient currently on IV antibiotic for possible pneumonia. Other acute exacerbation of lung fibrosis Objective - Vital Signs/Intake and Output Vital Signs (last 24 hours): Temp Pulse Resp BP Pulse Ox 97.1 F L 77 18 119/76 99 01/16/18 00:07 01/16/18 00:07 01/16/18 00:07 01/16/18 00:07 01/16/18 00:07 Intake and Output: 01/16/18 01/16/18 06:59 18:59 Intake Total 750 Balance 750 - Medications Medications: Current Medications Albuterol/Ipratropium (Duoneb 3 Mg/0.5 Mg (3 Ml) Ud) 3 ml INH RQ6 [facility] Last Admin: 01/16/18 01:56 Dose: 3 ml Furosemide (Lasix) 20 mg IVP DAILY [facility] Last Admin: 01/15/18 09:12 Dose: 20 mg Heparin Sodium (Porcine) (Heparin) 5,000 units SC Q8 [facility] Last Admin: 01/16/18 05:38 Dose: 5,000 units Ceftriaxone Sodium 1 gm/ (Sodium Chloride) 100 mls @ 100 mls/hr IVPB DAILY [facility] PRN Reason: Protocol Last Admin: 01/15/18 10:30 Dose: 100 mls/hr Azithromycin 500 mg/ Sodium (Chloride) 250 mls @ 250 mls/hr IVPB Q24H [facility] PRN Reason: Protocol Last Admin: 01/16/18 06:06 Dose: 250 mls/hr Insulin Human Regular (Novolin R) 0 unit SC ACHS [facility] PRN Reason: Protocol Last Admin: 01/15/18 21:23 Dose: 2 unit Methylprednisolone (Solu-Medrol) 40 mg IVP Q12 [facility] Stop: 01/16/18 10:01 Last Admin: 01/15/18 21:23 Dose: 40 mg Pneumococcal Polyvalent Vaccine (Pneumovax 23 Vaccine) 0.5 ml IM .ONCE ONE Stop: 01/17/18 10:01 - Labs Labs: 01/15/18 07:10 01/15/18 07:10 PT 14.5 SECONDS (9.7-12.2) H 01/14/18 02:21 INR 1.3 01/14/18 02:21 APTT 36 SECONDS (21-34) H 01/14/18 02:21
[2018-01-16 08:04] VITALS: RESP 20
[2018-01-16] MEDS: (Novolin R) Insulin Human Regular 100 units/ml vial SC SCH ×4 (08:21→21:56)
[2018-01-16] MEDS: MethylPREDNISolone 40 mg Vial IVP SCH (10:31)
--- NOTE | 2018-01-16 12:09 | CP.PCM.PN ---
<Felice Watts - Last Filed: 01/16/18 12:10> Subjective - Date & Time of Evaluation Date of Evaluation: 01/16/18 Time of Evaluation: 08:00 - Subjective Subjective: PGY4 GI Follow-up Pt seen and examined bedside Denies any abd pain Denies fever, chills or diaphoresos tolerating diet, +BM ROS: 12 point ROS conducted, neg other than above Objective - Vital Signs/Intake and Output Vital Signs (last 24 hours): Temp Pulse Resp BP Pulse Ox 97.7 F 99 H 20 150/80 97 01/16/18 08:00 01/16/18 08:00 01/16/18 08:00 01/16/18 10:31 01/16/18 08:00 Intake and Output: 01/16/18 01/16/18 06:59 18:59 Intake Total 750 Balance 750 - Medications Medications: Current Medications Albuterol/Ipratropium (Duoneb 3 Mg/0.5 Mg (3 Ml) Ud) 3 ml INH RQ6 JUNIOR Last Admin: 01/16/18 07:35 Dose: 3 ml Furosemide (Lasix) 20 mg IVP DAILY JUNIOR Last Admin: 01/16/18 10:31 Dose: 20 mg Heparin Sodium (Porcine) (Heparin) 5,000 units SC Q8 JUNIOR Last Admin: 01/16/18 05:38 Dose: 5,000 units Ceftriaxone Sodium 1 gm/ (Sodium Chloride) 100 mls @ 100 mls/hr IVPB DAILY JUNIOR PRN Reason: Protocol Last Admin: 01/16/18 10:31 Dose: 100 mls/hr Azithromycin 500 mg/ Sodium (Chloride) 250 mls @ 250 mls/hr IVPB Q24H JUNIOR PRN Reason: Protocol Last Admin: 01/16/18 06:06 Dose: 250 mls/hr Insulin Human Regular (Novolin R) 0 unit SC ACHS JUNIOR PRN Reason: Protocol Last Admin: 01/16/18 08:21 Dose: 4 unit Pneumococcal Polyvalent Vaccine (Pneumovax 23 Vaccine) 0.5 ml IM .ONCE ONE Stop: 01/17/18 10:01 - Labs Labs: 01/15/18 07:10 01/15/18 07:10 PT 14.5 SECONDS (9.7-12.2) H 01/14/18 02:21 INR 1.3 01/14/18 02:21 APTT 36 SECONDS (21-34) H 01/14/18 02:21 - Constitutional Appears: Well, No Acute Distress - Head Exam Head Exam: ATRAUMATIC, NORMOCEPHALIC - Eye Exam Eye Exam: Normal appearance - ENT Exam ENT Exam: Mucous Membranes Moist, Normal Exam - Neck Exam Neck Exam: Normal Inspection - Respiratory Exam Respiratory Exam: Clear to Ausculation Bilateral, NORMAL BREATHING PATTERN. absent: Rales, Rhonchi, Wheezes, Respiratory Distress - Cardiovascular Exam Cardiovascular Exam: REGULAR RHYTHM, +S1, +S2 - GI/Abdominal Exam GI & Abdominal Exam: Soft, Normal Bowel Sounds. absent: Guarding, Rigid, Tenderness, Organomegaly, Rebound - Extremities Exam Extremities Exam: absent: Joint Swelling, Pedal Edema - Neurological Exam Neurological Exam: Alert, Awake, Oriented x3 - Psychiatric Exam Psychiatric exam: Normal Affect, Normal Mood - Skin Skin Exam: Dry, Intact, Normal Color, Warm Assessment and Plan - Assessment and Plan (Free Text) Assessment: Brent Garza is a 67M w. hx of HTN, HL, DM who presented to the ED with SOB. CT Chest revealed cirrhotic changes Cirrhotic Liver changes on CT Chronic Hep C SOB PNA Plan: -CT of the Liver Triple: no HCC, cirrohotic changes -Hep Serology was Hep C antibody + -hep c viral load, genotype, fibrosure pending -r/o autoimmune, +IGG -will need to follow-up as an outpt w/ Dr. Bell -continue diet as tolerated -will need EGD and colonoscopy as oupt -MELD:15 D/W Dr. Bell <Aniya Bell - Last Filed: 01/16/18 16:22> Objective - Vital Signs/Intake and Output Vital Signs (last 24 hours): Temp Pulse Resp BP Pulse Ox 97.7 F 99 H 20 150/80 97 01/16/18 08:00 01/16/18 08:00 01/16/18 08:00 01/16/18 10:31 01/16/18 08:00 Intake and Output: 01/16/18 01/16/18 06:59 18:59 Intake Total 750 Balance 750 - Medications Medications: Current Medications Albuterol/Ipratropium (Duoneb 3 Mg/0.5 Mg (3 Ml) Ud) 3 ml INH RQ6 JUNIOR Last Admin: 01/16/18 13:20 Dose: 3 ml Furosemide (Lasix) 20 mg IVP DAILY JUNIOR Last Admin: 01/16/18 10:31 Dose: 20 mg Heparin Sodium (Porcine) (Heparin) 5,000 units SC Q8 JUNIOR Last Admin: 01/16/18 12:57 Dose: 5,000 units Ceftriaxone Sodium 1 gm/ (Sodium Chloride) 100 mls @ 100 mls/hr IVPB DAILY JUNIOR PRN Reason: Protocol Last Admin: 01/16/18 10:31 Dose: 100 mls/hr Azithromycin 500 mg/ Sodium (Chloride) 250 mls @ 250 mls/hr IVPB Q24H JUNIOR PRN Reason: Protocol Last Admin: 01/16/18 06:06 Dose: 250 mls/hr Insulin Human Regular (Novolin R) 0 unit SC ACHS JUNIOR PRN Reason: Protocol Last Admin: 01/16/18 12:57 Dose: 6 unit Pneumococcal Polyvalent Vaccine (Pneumovax 23 Vaccine) 0.5 ml IM .ONCE ONE Stop: 01/17/18 10:01 - Labs Labs: 01/15/18 07:10 01/15/18 07:10 PT 14.5 SECONDS (9.7-12.2) H 01/14/18 02:21 INR 1.3 01/14/18 02:21 APTT 36 SECONDS (21-34) H 01/14/18 02:21 Attending/Attestation - Attestation I have personally seen and examined this patient.: Yes I have fully participated in the care of the patient.: Yes I have reviewed all pertinent clinical information, including history, physical exam and plan: Yes Notes (Text): 01/16/18 16:20 67 yr old M with history of of HTN, HL, DM who presented to the ED with SOB. CT Chest revealed cirrhotic changes in liver with HCV ab positive. CTAP triple phase with cirrhosis but no liver lesions/ HCC and no s/s of portal HTN. Will require outpatient treatment if chronic infection. Can follow as outpatient for treatment and colonoscopy. Thank you for letting us participate in the care of your patient
[2018-01-17] MEDS: Albuterol-Ipratrop 3 mg / 0.5 (3 ml) UD INH SCH ×3 (01:05→13:25)
[2018-01-17 01:58] VITALS: O2SAT 95
[2018-01-17] MEDS: Azithromycin 500 MG in Sodium Chloride 0.9% 250 ML IVPB SCH (06:15)
[2018-01-17 08:33] VITALS: PULSE 100; TEMP 97.9
[2018-01-17] MEDS: (Novolin R) Insulin Human Regular 100 units/ml vial SC SCH ×2 (08:36→11:54)
[2018-01-17] MEDS ORDERED: Pneumococcal 23-Valent Vaccine IM ONE (10:00)
--- NOTE | 2018-01-17 10:17 | VASCLAB ---
PROCEDURE: Lower Extremity Venous Duplex Exam. HISTORY: Edema PRIORS: None. TECHNIQUE: Bilateral common femoral, femoral, popliteal and posterior tibial, peroneal and great saphenous veins were evaluated. Flow was assessed with color Doppler, compressibility, assessment of phasic flow and augmentation response. Report prepared by ROSI Anderson, RVT FINDINGS: RIGHT: 1. Common Femoral Vein: 1.1. Compressibility - Fully compressible: Thrombus - None : Flow - Phasic: Augmentation -Normal: Reflux - None. 2. Femoral Vein: 2.1. Compressibility - Fully compressible: Thrombus - None : Flow - Phasic: Augmentation -Normal: Reflux - None. 3. Popliteal Vein: 3.1. Compressibility - Fully compressible: Thrombus - None : Flow - Phasic: Augmentation -Normal: Reflux - None. 4. Posterior Tibial Vein: 4.1. Compressibility - Fully compressible: Thrombus - None: Flow - Phasic: Augmentation -Normal: Reflux - None. 5. Peroneal Vein: 5.1. Compressibility - Fully compressible: Thrombus - None: Flow - Phasic: Augmentation -Normal: Reflux - None. 6. Great Saphenous Vein: 6.1. Compressibility - Fully compressible: Thrombus - None: Flow - Phasic: Augmentation - Normal: Reflux - None. LEFT: 1. Common Femoral Vein: 1.1. Compressibility - Fully compressible: Thrombus - None: Flow - Phasic: Augmentation -Normal: Reflux - None. 2. Femoral Vein: 2.1. Compressibility - Fully compressible: Thrombus - None: Flow - Phasic: Augmentation -Normal: Reflux - None. 3. Popliteal Vein: 3.1. Compressibility - Fully compressible: Thrombus - None : Flow - Phasic: Augmentation -Normal: Reflux - None. 4. Posterior Tibial Vein: 4.1. Compressibility - Fully compressible: Thrombus - None: Flow - Phasic: Augmentation -Normal: Reflux - None. 5. Peroneal Vein: 5.1. Compressibility - Fully compressible: Thrombus - None: Flow - Phasic: Augmentation -Normal: Reflux - None. 6. Great Saphenous Vein: 6.1. Compressibility - Fully compressible: Thrombus - None: Flow - Phasic: Augmentation - Normal: Reflux - None. OTHER FINDINGS: Right: None significant. Left: None significant. IMPRESSION: Right: No evidence of deep or superficial vein thrombosis of the right lower extremity. Normal valve function noted of the right side. Left: No evidence of deep or superficial vein thrombosis of the left lower extremity. Normal valve function noted of the left side.
[2018-01-17 10:33] VITALS: BP 129/74
--- NOTE | 2018-01-17 20:43 | CP.PCM.DIS ---
Provider - Provider Date of Admission: 01/14/18 06:21 Attending physician: Patricia Zaragoza MD Time Spent in preparation of Discharge (in minutes): 45 Hospital Course - Lab Results Lab Results: Most Recent Lab Values WBC 6.1 K/uL (4.8-10.8) 01/15/18 07:10 RBC 4.27 Mil/uL (4.40-5.90) L 01/15/18 07:10 Hgb 14.2 g/dL (12.0-18.0) 01/15/18 07:10 Hct 40.3 % (35.0-51.0) 01/15/18 07:10 MCV 94.5 fL (80.0-94.0) H 01/15/18 07:10 MCH 33.4 pg (27.0-31.0) H 01/15/18 07:10 MCHC 35.3 g/dL (33.0-37.0) 01/15/18 07:10 RDW 14.6 % (11.5-14.5) H 01/15/18 07:10 Plt Count 163 K/uL (130-400) 01/15/18 07:10 MPV 7.2 fL (7.2-11.7) 01/15/18 07:10 Neut % (Auto) 66.4 % (50.0-75.0) 01/15/18 07:10 Lymph % (Auto) 29.3 % (20.0-40.0) 01/15/18 07:10 [place] % (Auto) 4.1 % (0.0-10.0) 01/15/18 07:10 Eos % (Auto) 0.0 % (0.0-4.0) 01/15/18 07:10 Baso % (Auto) 0.2 % (0.0-2.0) 01/15/18 07:10 Neut # (Auto) 4.0 K/uL (1.8-7.0) 01/15/18 07:10 Lymph # (Auto) 1.8 K/uL (1.0-4.3) 01/15/18 07:10 [place] # (Auto) 0.3 K/uL (0.0-0.8) 01/15/18 07:10 Eos # (Auto) 0.0 K/uL (0.0-0.7) 01/15/18 07:10 Baso # (Auto) 0.0 K/uL (0.0-0.2) 01/15/18 07:10 PT 14.5 SECONDS (9.7-12.2) H 01/14/18 02:21 INR 1.3 01/14/18 02:21 APTT 36 SECONDS (21-34) H 01/14/18 02:21 pO2 53 mm/Hg (30-55) 01/14/18 02:32 VBG pH 7.43 (7.32-7.43) 01/14/18 02:32 VBG pCO2 34 mmHg (40-60) L 01/14/18 02:32 VBG HCO3 23.8 mmol/L 01/14/18 02:32 VBG Total CO2 23.6 mmol/L (22-28) 01/14/18 02:32 VBG O2 Sat (Calc) 91.7 % (40-65) H 01/14/18 02:32 VBG Base Excess -1.1 mmol/L (0.0-2.0) L 01/14/18 02:32 VBG Potassium 3.7 mmol/L (3.6-5.2) 01/14/18 02:32 Sodium 136.0 mmol/l (132-148) 01/14/18 02:32 Chloride 104.0 mmol/L (98-107) 01/14/18 02:32 Glucose 97 mg/dl (75-110) 01/14/18 02:32 Lactate 1.3 mmol/L (0.7-2.1) 01/14/18 02:32 Sodium 139 mmol/L (132-148) 01/15/18 07:10 Potassium 4.3 mmol/L (3.6-5.2) 01/15/18 07:10 Chloride 103 mmol/L (98-107) 01/15/18 07:10 Carbon Dioxide 26 mmol/L (22-30) 01/15/18 07:10 Anion Gap 15 (10-20) 01/15/18 07:10 BUN 12 mg/dL (9-20) 01/15/18 07:10 Creatinine 0.7 mg/dL (0.8-1.5) L 01/15/18 07:10 Est GFR ( Amer) > 60 01/15/18 07:10 Est GFR (Non-Af Amer) > 60 01/15/18 07:10 POC Glucose (mg/dL) 290 mg/dL (65-110) H 01/17/18 11:31 Random Glucose 238 mg/dL (75-110) H 01/15/18 07:10 Calcium 8.3 mg/dl (8.6-10.4) L 01/15/18 07:10 Phosphorus 4.2 mg/dL (2.5-4.5) 01/15/18 07:10 Magnesium 1.8 mg/dL (1.6-2.3) 01/15/18 07:10 Total Bilirubin 0.7 mg/dL (0.2-1.3) 01/15/18 07:10 AST 58 U/L (17-59) 01/15/18 07:10 ALT 26 U/L (21-72) 01/15/18 07:10 Alkaline Phosphatase 171 U/L (38-126) H 01/15/18 07:10 Troponin I < 0.0120 ng/mL (0.00-0.120) 01/14/18 02:21 NT-Pro-B Natriuret Pep 37.0 pg/mL (0-900) 01/14/18 02:21 Total Protein 8.3 g/dL (6.3-8.3) 01/15/18 07:10 Albumin 3.3 g/dL (3.5-5.0) L 01/15/18 07:10 Globulin 5.0 gm/dL (2.2-3.9) H 01/15/18 07:10 Albumin/Globulin Ratio 0.7 (1.0-2.1) L 01/15/18 07:10 Wtmhi-8-Gzmiveaptty 154 mg/dL (83-199) 01/14/18 12:39 Ceruloplasmin 30 mg/dL (18-36) 01/14/18 13:48 Venous Blood Potassium 3.7 mmol/L (3.6-5.2) 01/14/18 02:32 Urine Color Yellow (YELLOW) 01/14/18 03:24 Urine Clarity Clear (Clear) 01/14/18 03:24 Urine pH 6.0 (5.0-8.0) 01/14/18 03:24 Ur Specific [place] 1.012 (1.003-1.030) 01/14/18 03:24 Urine Protein Negative mg/dL (NEGATIVE) 01/14/18 03:24 Urine Glucose (UA) Normal mg/dL (Normal) 01/14/18 03:24 Urine Ketones Negative mg/dL (NEGATIVE) 01/14/18 03:24 Urine Blood Negative (NEGATIVE) 01/14/18 03:24 Urine Nitrate Negative (NEGATIVE) 01/14/18 03:24 Urine Bilirubin Negative (NEGATIVE) 01/14/18 03:24 Urine Urobilinogen 2.0 mg/dL (0.2-1.0) 01/14/18 03:24 Ur Leukocyte Esterase Neg [place]/uL (Negative) 01/14/18 03:24 Urine WBC (Auto) < 1 /hpf (0-5) 01/14/18 03:24 B-Hydroxybutyrate 0.19 mM (0.02-0.27) 01/14/18 02:21 IgG 2619.0 mg/dL (700.0-1600.0) H 01/14/18 13:48 Anti-Mitochondrial Ab Negative (Negative) 01/14/18 13:48 Hepatitis A IgM Ab Negative (NEGATIVE) 01/14/18 12:39 Hep Bs Antigen Negative (NEGATIVE) 01/14/18 12:39 Hep Bs Antibody Positive (NEGATIVE) 01/14/18 12:39 Hep B Core IgM Ab Negative (NEGATIVE) 01/14/18 12:39 Hepatitis C Antibody Reactive (NEGATIVE) 01/14/18 12:39 - Hospital Course Hospital Course: Chief complaint: Cough History present illness: 67-year-old male with history of diabetes, hypertension/cholesterol. Patient was brought to the emergency room by the family members because of the worsening shortness of breath, and increasing cough. Patient supposed to be seeing me in my office today, but last night he started having worsening cough. Patient according to the family members was having at least a 2-3 days of worsening shortness of breath, and also increasing cough. For last few weeks his having increasing dyspnea especially at nighttime, also increasingly worsening SOB on exertion. He was not able to lie flat. Using pillows. Patient stated that at least a 6 months that he is having progressively worsening shortness of breath. Before used to walk long distances, now after walking 4 blocks he started feeling increasing dyspnea. He is not able to climb stairs. Lying down causes increasing coughing episodes. He did not have any fever or night sweats or chills. He claims that in the past at least 6-7 years ago he was treated for tuberculosis. He also had some prostate problem in the past. He had a treatment for tuberculosis at least 6 months at [facility] He did not have any fever. No chills. He denied any vomiting. He did not have any chest pain. In the emergency room patient was in severe respiratory distress. Placed on oxygen. Past medical history: Hypertension diabetes high cholesterol on medication. Patient did not see any medical doctor recently. Allergies: No known drug allergy Personal history: He does not smoke. He drinks at least once a month. Patient is living by himself here with family members. Family history significant for lung cancer in the family. Also diabetes and hypertension Review of systems: Currently patient is having increasing cough and wheezing and shortness of breath. Mostly dry. No chest pain. Increasing leg swelling Unable to sleep. Dyspnea noted On examination: Vital signs noted. Chest bilateral diffuse rhonchi and wheezing noted. Regular heart sound Abdominal distention present. Pedal edema noted Labs reviewed Nonspecific CAT scan of the chest and showing evidence of interstitial changes, likely associated interstitial fibrosis Also possibly has pneumonia Assessment and recommendation: 67-year-old male with history of hypertension diabetes hypercholesterolemia now admitted with worsening orthopnea, shortness of breath, leg swelling. CT of the chest showing evidence of chronic liver disease cirrhosis of the liver. Will get the further workup. Diuretics may be needed. DVT study. Sonogram of the abdomen. GI evaluation. Antibiotic. Antibiotic for presumptive community-acquired pneumonia. Spoke to the patient's family member Will follow the patient Course in the hospital: Patient initially admitted with the significant lung fibrotic changes, and associated with the cough. Patient started initially on intravenous antibiotic and Solu-Medrol. The patient started showing some improvement in the breathing. Patient was able to walk, and ambulating SPO2 was 91-92. Patient underwent CT scan of the abdomen and pelvis with the triple phase study to evaluate the liver status. Patient had a hepatitis C positive GI evaluation was called in. CAT scan was showing evidence of cirrhotic liver. Patient did not have any other symptoms. ProBNP level is negative Leg edema 1+ improving with Lasix intravenously. Patient is still having some minimal cough, but able to tolerate. Patient was able to walk without any difficulty, and oxygen saturation remains around the 88 and 92. But the patient will need a definitely nocturnal sleep study to evaluate the oxygen status at night. Patient may benefit having oxygen at night will be evaluated as an outpatient. Final diagnosis: Chronic hepatitis C, and associated with the liver cirrhosis. Patient seen by [facility] specialist, information was given to the patient, patient will be traveling to, [facility], he will be following family doctor there for getting the hepatitis C treatment. Patient also has a chronic interstitial lung disease, most likely interstitial lung fibrosis, patient will need management also. Currently he will need to continue antibiotic, bronchodilators, and needs to be evaluated for oxygen need. He also has a diabetes, he will be controlled with the current medications. Medications reviewed He will follow-up with the me in 4 days. Spoke to the patient's family in detail. We will follow the patient CT scan of the abdomen showing no evidence of any hepatoma except liver little cirrhotic changes Discharge Exam - Head Exam Head Exam: ATRAUMATIC, NORMOCEPHALIC Discharge Plan - Discharge Medications Prescriptions: Azithromycin [Zithromax] 250 mg PO DAILY #6 tab - Follow Up Plan Condition: FAIR Disposition: HOME/ ROUTINE Instructions: Heart Failure, Adult (DC), Shortness of Breath (Dyspnea) (DC), Low Salt Diet, Heart Failure Exercise Guide Referrals: Patricia Zaragoza MD [Staff Provider] -
== END 2018-01-17 15:08 | disposition home or self-care (01) | DRG 291 ==
LOC: C.ER 01:34 → C.3T 06:21
PROVIDERS: ADMIT Internal Medicine; ATTEND Internal Medicine
DX: I11.0 Hypertensive heart disease with heart failure (principal); J18.9 Pneumonia, unspecified organism; B18.2 Chronic viral hepatitis C; I50.9 Heart failure, unspecified; J84.10 Pulmonary fibrosis, unspecified; K74.60 Unspecified cirrhosis of liver; Z79.4 Long term (current) use of insulin; E10.9 Type 1 diabetes mellitus without complications; K73.9 Chronic hepatitis, unspecified